=== PATIENT | male | born 1955 | race African-American/Black ===

== ENCOUNTER 2018-09-16 11:41 | Inpatient (IN) | payer MEDICAID, OTHER | END 2018-09-17 20:50 | disposition home or self-care (01) | LOC: ER 11:41 → TELE 13:50 → WEST WING 23:29 → TELE-WESTW 23:45 | DX: K21.9 Gastro-esophageal reflux disease without esophagitis (principal); N17.9 Acute kidney failure, unspecified; E11.22 Type 2 diabetes mellitus with diabetic chronic kidney disease; N18.9 Chronic kidney disease, unspecified; I12.9 Hypertensive chronic kidney disease with stage 1 through stage 4 chronic kidney disease, or unspecified chronic kidney disease; E78.5 Hyperlipidemia, unspecified ==